=== PATIENT | female | born 1995 | race Caucasian/White ===

== ENCOUNTER 2016-12-16 18:22 | Emergency (ER) | payer MEDICAID ==
[~2016-12-16] VITALS: Ht 157.5 cm; Wt 58.8 kg
[2016-12-16 18:23] VITALS: BP 124/73
== END 2016-12-16 19:49 | disposition home or self-care (01) ==
LOC: ED 19:00
DX: Z00.00 Encounter for general adult medical examination without abnormal findings (principal)
CPT/HCPCS: 99281

== ENCOUNTER 2016-12-17 08:01 | Emergency (ER) | payer MEDICAID ==
[~2016-12-17] VITALS: Ht 157.5 cm; Wt 58.0 kg
[2016-12-17 09:24] VITALS: BP 128/79
== END 2016-12-17 09:26 | disposition home or self-care (01) ==
LOC: ED 08:28
DX: J20.9 Acute bronchitis, unspecified (principal); M94.0 Chondrocostal junction syndrome [Tietze]
CPT/HCPCS: 71020; 93005; 99284